=== PATIENT | male | born 1945 | race Caucasian/White ===

== ENCOUNTER 2022-10-13 18:53 | Emergency (ER) | payer BC, MEDICARE, OTHER ==
[2022-10-13] MEDS ORDERED: Sodium Chloride 0.9% 10 ML Syringe FLUSH PRN (18:55)
[2022-10-13] MEDS ORDERED: Ondansetron 4 MG/2 ML SDV IVPUSH PRN (18:56)
[2022-10-13] MEDS ORDERED: Sodium Chloride 0.9% 1,000 ML IV ONE (18:56)
[2022-10-13 19:05] LABS: BASOPHILS ABSOLUTE AUTO 0.04 K/uL (0.00-0.20); BASOPHILS PERCENT AUTO 0.4 % (0.0-2.0); EOSINOPHILS ABSOLUTE AUTO 0.37 K/uL (0.00-0.50); EOSINOPHILS PERCENT AUTO 3.9 % (0.0-5.0); HEMOGLOBIN 14.3 g/dL (13.1-16.8); LYMPHOCYTES ABSOLUTE AUTO 1.97 K/uL (0.50-3.50); LYMPHOCYTES PERCENT AUTO 20.8 % (10.0-50.0); MEAN CORPUSCULAR HEMOGLOBIN 30.9 pg (28.2-33.3); MEAN CORPUSCULAR HGB CONC 35.8 g/dL (31.7-36.0); MEAN CORPUSCULAR VOLUME 86.4 fL (84.0-98.0); MONOCYTES ABSOLUTE AUTO 0.76 K/uL (0.00-1.00); NEUTROPHILS ABSOLUTE AUTO 6.32 K/uL (1.40-7.00); NEUTROPHILS PERCENT AUTO 66.9 % (45.0-80.0); PLATELET COUNT,PLT 172 K/uL (150-350); RED BLOOD CELL COUNT 4.63 M/uL (4.33-5.41); RED CELL DISTRIBUTION WIDTH 14.3 % (11.2-14.1); WHITE BLOOD CELL COUNT,WBC 9.5 K/uL (4.0-10.2)
[2022-10-13 19:23] LABS: ALANINE AMINOTRANSFERASE,ALT 28 U/L (12-78); ALBUMIN 4.3 g/dL (3.4-5.0); ALKALINE PHOSPHATASE 75 IU/L (46-116); ANION GAP 13.7 meq/L (7-15); ASPARTATE AMNIOTRANSFERASE,AST 24 U/L (15-37); BLOOD UREA NITROGEN,BUN 24 mg/dL (7-18); CALCIUM 9.4 mg/dL (8.5-10.1); CARBON DIOXIDE,CO2 22.3 mmol/L (21.0-32.0); CHLORIDE,CL 105 mmol/L (98-107); CREATINE KINASE,CK 54 U/L (26-308); CREATININE 1.52 mg/dL (0.51-1.17); GLUCOSE RANDOM 219 mg/dL (70-99); POTASSIUM,K 3.8 mmol/L (3.5-5.1); PROTEIN TOTAL,TP 8.1 g/dL (6.4-8.2); SODIUM,NA 141 mmol/L (136-145)
[2022-10-13 19:27] LABS: ESTIMATED GFR 47 mL/min (>=60)
[2022-10-13 19:51] LABS: APPEARANCE,URINE CLEAR; BILIRUBIN,URINE SMALL (NEGATIVE); COLOR,URINE DARK YELLOW; GLUCOSE,URINE NEGATIVE (NEGATIVE); KETONES,URINE NEGATIVE (NEGATIVE); LEUKOCYTE ESTERASE,URINE NEGATIVE (NEGATIVE); NITRITE,URINE NEGATIVE (NEGATIVE); OCCULT BLOOD,URINE NEGATIVE (NEGATIVE); PROTEIN,URINE 100 mg/dL (NEGATIVE); UROBILINOGEN,URINE 0.2 E.U./dL (0.2-1.0)
[2022-10-13 20:00] LABS: AMORPHOUS SEDIMENT,URINE FEW /HPF (0/HPF); BACTERIA,URINE FEW /HPF (NONE TO FEW); EPITHELIAL CELLS,URINE FEW /LPF; HYALINE CASTS,URINE FEW; MUCUS,URINE MANY /LPF (NEGATIVE); RBC,URINE 0-5 /HPF
== END 2022-10-13 20:15 | disposition home or self-care (01) ==
LOC: LL.ED 18:53
DX: T67.5XXA Heat exhaustion, unspecified, initial encounter (principal); E86.0 Dehydration; X30.XXXA Exposure to excessive natural heat, initial encounter
CPT/HCPCS: 36415; 71045; 80053; 81001; 82550; 84484; 85025; 93005; 93010; 96361; 96374; 99284; 99284-25; J2405; J7030